=== PATIENT | male | born 1965 | race Caucasian/White ===

== ENCOUNTER 2024-07-21 20:08 | Inpatient (IN) | payer MEDICARE ==
[~2024-07-21] VITALS: Ht 177.8 cm; Wt 111.5 kg
[~2024-07-21 20:08] MED LIST: CLON-527 PO; CYAN100T12 PO; MULT-785 PO; NORCO10T PO; TERA10CA47 PO; TRAZ-89 PO; VENL25TA48 PO
[2024-07-21 20:24] LABS: BASOPHILS % (AUTO) 0.4 % (0-1); EOSINOPHILS # (AUTO) 0.1 X10'3 (0-0.9); EOSINOPHILS % (AUTO) 1.3 % (0-6); HEMATOCRIT 44.9 % (42.0-52.0); HEMOGLOBIN 14.9 g/dl (14.0-17.9); LYMPHOCYTES # (AUTO) 2.8 X10'3 (1.1-4.8); LYMPHOCYTES % (AUTO) 34.6 % (21-51); MEAN CORPUSCULAR HGB CONC 33.2 g/dL (33.0-36.5); MEAN CORPUSCULAR VOLUME 87.4 FL (78-98); MEAN PLATELET VOLUME 8.8 FL (7.4-10.4); MONOCYTES # (AUTO) 0.7 X10'3 (0-0.9); MONOCYTES % (AUTO) 8.9 % (2-12); NEUTROPHILS # (AUTO) 4.4 X10'3 (1.8-7.7); NEUTROPHILS % (AUTO) 54.8 % (42-75); PLATELET COUNT 175 X10'3 (140-440); RED BLOOD COUNT 5.14 X10'6 (4.70-6.10); RED CELL DISTRIBUTION WIDTH 14.3 % (11.5-14.5)
[2024-07-21 20:36] LABS: ALANINE AMINOTRANSFERASE 38 U/L (12-78); ALBUMIN 3.2 G/DL (3.4-5.0); ALBUMIN/GLOBULIN RATIO 0.9 (1.1-1.5); ALKALINE PHOSPHATASE 117 IU/L (46-116); ANION GAP 6 (8-16); ASPARTATE AMINO TRANSFERASE 27 U/L (10-37); BILIRUBIN,TOTAL 1.1 MG/DL (0.1-1.0); BLOOD UREA NITROGEN 15 MG/DL (7-18); CALCIUM 8.8 MG/DL (8.5-10.1); CHLORIDE 105 MMOL/L (99-107); CREATININE 1.25 MG/DL (0.60-1.10); GLUCOSE 182 MG/DL (70-104); POTASSIUM 3.6 MMOL/L (3.5-5.1); SODIUM 140 MMOL/L (135-145); TOTAL CARBON DIOXIDE 28.8 MMOL/L (24-32); TOTAL PROTEIN 6.9 G/DL (6.4-8.2); eGFR 59 ML/MIN
[2024-07-21 20:44] LABS: PRO BRAIN NATRIURETIC PEPTIDE 974 PG/ML (0-125)
[2024-07-21] MEDS ORDERED: potassium Cl 20 mEq SR tablet PO PRN (23:30)
[2024-07-21] MEDS ORDERED: acetaminophen 325mg tablet PO PRN (23:30)
[2024-07-21] MEDS ORDERED: ondansetron 4mg rapidly disintigrating tab PO PRN (23:30)
[2024-07-21] MEDS ORDERED: diphenhydrAMINE 50 mg/ml inj IV PRN (23:30)
[2024-07-21] MEDS ORDERED: magnesium sulf-water 2g/50mL 50 ML IV PRN (23:30)
[2024-07-21] MEDS ORDERED: ipratropium/albuterol 3ml nebule NEB PRN (23:30)
[2024-07-21] MEDS ORDERED: potassium Cl 40MEQ/1/2NS 520ml 520 ML IV PRN (23:30)
[2024-07-21] MEDS ORDERED: HYDROcodone/acetaminophen 5mg/325mg tablet PO PRN (23:30)
[2024-07-21] MEDS ORDERED: morphine 2 MG/ML inj. syringe IV PRN (23:30)
[2024-07-21] MEDS ORDERED: ondansetron/PF 4mg/2ml inj IV PRN (23:30)
[2024-07-21] MEDS ORDERED: magnesium hydroxide 30ml (MOM) UD suspension PO PRN (23:30)
[2024-07-21] MEDS ORDERED: mag hydrox/Alum hydrox/simeth 30ml oral suspension PO PRN (23:30)
[2024-07-21] MEDS ORDERED: bisacodyl 10mg suppository rectal RC PRN (23:30)
[2024-07-21] MEDS ORDERED: magnesium sulf-water 4G/100mL 100 ML IV PRN (23:30)
[2024-07-21] MEDS ORDERED: metoclopramide 5 mg/ml inj IV PRN (23:30)
[2024-07-21] MEDS ORDERED: albuterol 2.5 MG/3 ML nebule NEB PRN (23:30)
[2024-07-21] MEDS ORDERED: HYDROmorphone inj. 0.5 MG/0.5 ML DISP.SYRIN IV PRN (23:30)
[2024-07-21 23:53] LABS: APTT 26 SECONDS (22-32); INR 1.3 INR; PROTHROMBIN TIME 12.9 SECONDS (9.0-12.0)
[2024-07-22] VITALS (8 sets, daily range): BP systolic 101–168; BP diastolic 65–89; PULSE 57–99; RESP 15–24; TEMP 96.6–98; O2SAT 93–98
[2024-07-22] MEDS: apixaban 5mg tablet PO SCH (00:01)
[2024-07-22] MEDS: furosemide 10 MG/1 ML 10ml inj IV ONE (00:01)
[2024-07-22 02:20] LABS: BILIRUBIN,URINE NEGATIVE (Neg); CLARITY,URINE CLEAR (Clear); COLOR,URINE YELLOW (Yellow); GLUCOSE, URINE NEGATIVE (Neg); KETONES,URINE NEGATIVE (Neg); LEUKOCYTE ESTERASE ,URINE NEGATIVE (Neg); NITRITES, URINE NEGATIVE (Neg); OCCULT BLOOD,URINE SMALL (Neg); PH,URINE 5.5 (4.8-8.0); PROTEIN,URINE NEGATIVE (Neg); UROBILINOGEN,URINE 0.2 E.U/dL (0.2-1.0)
[2024-07-22 02:26] LABS: UA COLLECTION TYPE CLN CATCH MIDSTREAM
[2024-07-22 02:27] LABS: BACTERIA,URINE FEW /HPF (Neg); SQUAMOUS EPITHELIAL CELL,UR FEW /LPF (FEW); WBC,URINE 0-4 /HPF (0-4)
[2024-07-22 06:49] LABS: BASOPHILS % (AUTO) 0.5 % (0-1); EOSINOPHILS # (AUTO) 0.1 X10'3 (0-0.9); EOSINOPHILS % (AUTO) 1.7 % (0-6); HEMATOCRIT 44.3 % (42.0-52.0); HEMOGLOBIN 14.9 g/dl (14.0-17.9); LYMPHOCYTES # (AUTO) 2.5 X10'3 (1.1-4.8); LYMPHOCYTES % (AUTO) 34.4 % (21-51); MEAN CORPUSCULAR HEMOGLOBIN 29.1 PG (27.0-31.0); MEAN CORPUSCULAR HGB CONC 33.6 g/dL (33.0-36.5); MEAN CORPUSCULAR VOLUME 86.7 FL (78-98); MEAN PLATELET VOLUME 9.4 FL (7.4-10.4); MONOCYTES # (AUTO) 0.6 X10'3 (0-0.9); MONOCYTES % (AUTO) 8.7 % (2-12); NEUTROPHILS % (AUTO) 54.7 % (42-75); PLATELET COUNT 174 X10'3 (140-440); RED BLOOD COUNT 5.11 X10'6 (4.70-6.10); RED CELL DISTRIBUTION WIDTH 14.5 % (11.5-14.5); WHITE BLOOD COUNT 7.3 X10'3 (4.5-11.0)
[2024-07-22 07:14] LABS: ALANINE AMINOTRANSFERASE 31 U/L (12-78); ALBUMIN 3.2 G/DL (3.4-5.0); ALBUMIN/GLOBULIN RATIO 0.9 (1.1-1.5); ALKALINE PHOSPHATASE 110 IU/L (46-116); ANION GAP 13 (8-16); ASPARTATE AMINO TRANSFERASE 26 U/L (10-37); BILIRUBIN,TOTAL 1.3 MG/DL (0.1-1.0); BLOOD UREA NITROGEN 15 MG/DL (7-18); BUN/CREATININE RATIO 13.9 (10.0-20.0); CALCIUM 9.1 MG/DL (8.5-10.1); CHLORIDE 105 MMOL/L (99-107); CHOL/HDL RATIO 3.7 (0.00-4.99); CHOLESTEROL 133 MG/DL (0-200); CREATININE 1.08 MG/DL (0.60-1.10); GLUCOSE 159 MG/DL (70-104); HDL CHOLESTEROL 36 MG/DL (35-60); LDL CHOLESTEROL 86 MG/DL (50-100); MAGNESIUM 1.3 MG/DL (1.5-2.4); POTASSIUM 3.3 MMOL/L (3.5-5.1); SODIUM 142 MMOL/L (135-145); TOTAL CARBON DIOXIDE 24.4 MMOL/L (24-32); TOTAL PROTEIN 6.7 G/DL (6.4-8.2); TRIGLYCERIDES 99 MG/DL (20-135); eGFR 70 ML/MIN
[2024-07-22] MEDS ORDERED: heparin, porcine 5000 units/ml vial SQ SCH (08:00)
[2024-07-22] MEDS: K and/or MAG REPLACEMENT MC SCH (08:00)
[2024-07-22 09:33] LABS: D-DIMER 1.13 MG/L FEU (0-0.50)
[2024-07-22] MEDS: magnesium Cl slow-release 64mg tablet PO PRN (09:42)
[2024-07-22] MEDS: furosemide 40mg/4ml inj IV SCH (09:42)
[2024-07-22] MEDS: potassium Cl 20 mEq SR tablet PO PRN (09:43)
[2024-07-22] MEDS: docusate sod 100mg capsule PO SCH (09:45)
[2024-07-22] MEDS: ceFAZolin/D5W- 1GM premix 50 ML IV SCH (10:31)
[2024-07-22] MEDS ORDERED: glucagon, human recombinant 1mg kit SUBCUT PRN (16:45)
[2024-07-22] MEDS ORDERED: DEXTROSE 15 GM of carb/4 tabs (each vial/BOTTLE has 4 tablets) PO PRN ×2 (16:45)
[2024-07-22] MEDS ORDERED: dextrose 50%-water 50ml dispensing syringe IV PRN ×2 (16:45)
[2024-07-22] MEDS: INSULIN LISPRO 100 UNIT/ML INSULN.PEN MULTI-DOSE SQ SCH ×2 (17:00→18:00)
[2024-07-22] MEDS: insulin glargine (Lantus) pen - multi-dose SQ SCH (21:03)
[2024-07-23] VITALS (10 sets, daily range): BP systolic 100–156; BP diastolic 55–93; PULSE 68–112; RESP 16–20; TEMP 97.1–98.1; O2SAT 88–97
[2024-07-23 05:42] LABS: BASOPHILS # (AUTO) 0.1 X10'3 (0-0.2); BASOPHILS % (AUTO) 1.2 % (0-1); EOSINOPHILS # (AUTO) 0.1 X10'3 (0-0.9); MEAN CORPUSCULAR HEMOGLOBIN 29.2 PG (27.0-31.0); NEUTROPHILS # (AUTO) 3.4 X10'3 (1.8-7.7); RED CELL DISTRIBUTION WIDTH 14.6 % (11.5-14.5); WHITE BLOOD COUNT 6.9 X10'3 (4.5-11.0)
[2024-07-23 05:44] LABS: HEMATOCRIT 44.4 % (42.0-52.0); HEMOGLOBIN 14.8 g/dl (14.0-17.9); LYMPHOCYTES # (AUTO) 2.7 X10'3 (1.1-4.8); LYMPHOCYTES % (AUTO) 39.2 % (21-51); MEAN CORPUSCULAR HGB CONC 33.4 g/dL (33.0-36.5); MEAN CORPUSCULAR VOLUME 87.3 FL (78-98); MEAN PLATELET VOLUME 9.5 FL (7.4-10.4); MONOCYTES # (AUTO) 0.5 X10'3 (0-0.9); MONOCYTES % (AUTO) 7.8 % (2-12); NEUTROPHILS % (AUTO) 49.8 % (42-75); PLATELET COUNT 149 X10'3 (140-440); RED BLOOD COUNT 5.08 X10'6 (4.70-6.10)
[2024-07-23 05:49] LABS: ALANINE AMINOTRANSFERASE 28 U/L (12-78); ALBUMIN 3.1 G/DL (3.4-5.0); ALBUMIN/GLOBULIN RATIO 0.8 (1.1-1.5); ALKALINE PHOSPHATASE 106 IU/L (46-116); ANION GAP 7 (8-16); ASPARTATE AMINO TRANSFERASE 29 U/L (10-37); BILIRUBIN,TOTAL 1.1 MG/DL (0.1-1.0); BLOOD UREA NITROGEN 19 MG/DL (7-18); BUN/CREATININE RATIO 14.2 (10.0-20.0); CALCIUM 8.8 MG/DL (8.5-10.1); CHLORIDE 106 MMOL/L (99-107); CREATININE 1.34 MG/DL (0.60-1.10); GLUCOSE 152 MG/DL (70-104); MAGNESIUM 1.5 MG/DL (1.5-2.4); SODIUM 143 MMOL/L (135-145); TOTAL CARBON DIOXIDE 30.1 MMOL/L (24-32); TOTAL PROTEIN 6.8 G/DL (6.4-8.2); eCRCL 60 ML/MIN; eGFR 54 ML/MIN
[2024-07-23 05:57] LABS: POTASSIUM 4.4 MMOL/L (3.5-5.1)
[2024-07-23] MEDS: nicotine 7mg patch - 24hr TD SCH (12:15)
[2024-07-23 13:03] LABS: BILIRUBIN,URINE NEGATIVE (Neg); CLARITY,URINE CLEAR (Clear); COLOR,URINE YELLOW (Yellow); GLUCOSE, URINE NEGATIVE (Neg); KETONES,URINE NEGATIVE (Neg); LEUKOCYTE ESTERASE ,URINE NEGATIVE (Neg); NITRITES, URINE NEGATIVE (Neg); OCCULT BLOOD,URINE MODERATE (Neg); PROTEIN,URINE NEGATIVE (Neg); UROBILINOGEN,URINE 0.2 E.U/dL (0.2-1.0)
[2024-07-23 13:17] LABS: BACTERIA,URINE NONE SEEN /HPF (Neg); MUCUS STRANDS NONE SEEN /LPF (Neg); SQUAMOUS EPITHELIAL CELL,UR FEW /LPF (FEW); UA COLLECTION TYPE URINAL; WBC,URINE 0-4 /HPF (0-4)
[2024-07-23] MEDS: magnesium sulf-water 2g/50mL 50 ML IV ONE (14:36)
[2024-07-23] MEDS: flecainide 50mg tablet PO SCH (20:06)
[2024-07-24 02:00] VITALS: BP 130/73; PULSE 65; RESP 11; TEMP 97.2; O2SAT 91
[2024-07-24 06:00] VITALS: BP 132/96; PULSE 54; RESP 21; TEMP 97.4; O2SAT 96
[2024-07-24 06:18] LABS: BASOPHILS % (AUTO) 0.5 % (0-1); EOSINOPHILS # (AUTO) 0.1 X10'3 (0-0.9); EOSINOPHILS % (AUTO) 1.5 % (0-6); HEMOGLOBIN 15.4 g/dl (14.0-17.9); LYMPHOCYTES # (AUTO) 2.3 X10'3 (1.1-4.8); LYMPHOCYTES % (AUTO) 26.8 % (21-51); MEAN CORPUSCULAR HEMOGLOBIN 29.3 PG (27.0-31.0); MEAN CORPUSCULAR HGB CONC 33.5 g/dL (33.0-36.5); MEAN CORPUSCULAR VOLUME 87.7 FL (78-98); MEAN PLATELET VOLUME 9.7 FL (7.4-10.4); MONOCYTES # (AUTO) 0.6 X10'3 (0-0.9); MONOCYTES % (AUTO) 7.4 % (2-12); NEUTROPHILS # (AUTO) 5.4 X10'3 (1.8-7.7); NEUTROPHILS % (AUTO) 63.8 % (42-75); PLATELET COUNT 185 X10'3 (140-440); RED BLOOD COUNT 5.25 X10'6 (4.70-6.10); RED CELL DISTRIBUTION WIDTH 14.8 % (11.5-14.5); WHITE BLOOD COUNT 8.5 X10'3 (4.5-11.0)
[2024-07-24 06:26] LABS: ALANINE AMINOTRANSFERASE 28 U/L (12-78); ALBUMIN 3.3 G/DL (3.4-5.0); ALBUMIN/GLOBULIN RATIO 0.8 (1.1-1.5); ALKALINE PHOSPHATASE 111 IU/L (46-116); ANION GAP 8 (8-16); ASPARTATE AMINO TRANSFERASE 22 U/L (10-37); BILIRUBIN,TOTAL 1.2 MG/DL (0.1-1.0); BLOOD UREA NITROGEN 16 MG/DL (7-18); BUN/CREATININE RATIO 12.4 (10.0-20.0); CALCIUM 8.8 MG/DL (8.5-10.1); CHLORIDE 105 MMOL/L (99-107); CREATININE 1.29 MG/DL (0.60-1.10); GLUCOSE 167 MG/DL (70-104); MAGNESIUM 1.8 MG/DL (1.5-2.4); POTASSIUM 3.6 MMOL/L (3.5-5.1); SODIUM 142 MMOL/L (135-145); THYROID STIMULATING HORMONE 1.33 ulU/ml (0.34-4.50); TOTAL PROTEIN 7.2 G/DL (6.4-8.2); eCRCL 62 ML/MIN; eGFR 57 ML/MIN
[2024-07-24] MEDS: metoprolol succinate 25mg (24-HOUR) SR. Tablet PO SCH (07:54)
[2024-07-24] MEDS: EMPAGLIFLOZIN 10 MG TABLET PO SCH (07:54)
[2024-07-24] MEDS: lisinopril 5mg tablet PO SCH (07:55)
[2024-07-24 08:32] VITALS: PULSE 83; RESP 18; O2SAT 94
[2024-07-24 11:00] VITALS: BP 128/89; PULSE 51; RESP 13; TEMP 97.4; O2SAT 91
[2024-07-24] MEDS: clonazePAM 0.5mg tablet PO ONE (11:26)
[2024-07-24] MEDS ORDERED: INSU100I8 SQ (14:18)
[2024-07-24] MEDS ORDERED: EMPA10TA PO (14:18)
[2024-07-24] MEDS ORDERED: LANTUS SQ (14:18)
[2024-07-24] MEDS ORDERED: LISI5TAB22 PO (14:18)
[2024-07-24] MEDS ORDERED: METO-395 PO (14:18)
[2024-07-24] MEDS ORDERED: TAM50T PO (14:18)
[2024-07-24] MEDS ORDERED: APIX5TAB3 PO (14:18)
[2024-07-24] MEDS ORDERED: docusate sod 100mg capsule PO SCH (20:00)
[2024-07-25] MEDS ORDERED: furosemide 20 MG/2 ML vial IV SCH (08:00)
== END 2024-07-24 14:56 | disposition home or self-care (01) | DRG 291 ==
LOC: ER 20:09 → ED HOLD 23:35 → PCU 3S 07-22 02:05
PROVIDERS: ADMIT Internal Medicine Critical Care Medicine; ATTEND Internal Medicine
DX: I11.0 Hypertensive heart disease with heart failure (principal); I50.33 Acute on chronic diastolic (congestive) heart failure; L03.116 Cellulitis of left lower limb; N17.9 Acute kidney failure, unspecified; I48.92 Unspecified atrial flutter; L03.115 Cellulitis of right lower limb; E11.9 Type 2 diabetes mellitus without complications; Z85.46 Personal history of malignant neoplasm of prostate; Z79.899 Other long term (current) drug therapy; Z92.3 Personal history of irradiation; Z87.891 Personal history of nicotine dependence
CPT/HCPCS: 36415; 71045; 71250; 74176; 80053; 80061; 81001; 82948; 83036; 83605; 83735; 83880; 84145; 84443; 84484; 85025; 85379; 85610; 85730; 87040; 87081; 93005; 93306; 94760; 97116; 97161; 99285; A4615; A6449; G0378; J0690; J1815; J1938; J1940; J7040

== ENCOUNTER 2024-08-24 07:02 | Day surgery (SDC) | payer MEDICARE ==
[2024-08-23 15:38] LABS: BASOPHILS % (AUTO) 0.6 % (0-1); EOSINOPHILS # (AUTO) 0.1 X10'3 (0-0.9); EOSINOPHILS % (AUTO) 0.8 % (0-6); HEMATOCRIT 46.4 % (42.0-52.0); HEMOGLOBIN 15.2 g/dl (14.0-17.9); LYMPHOCYTES # (AUTO) 1.6 X10'3 (1.1-4.8); LYMPHOCYTES % (AUTO) 23.2 % (21-51); MEAN CORPUSCULAR HEMOGLOBIN 28.1 PG (27.0-31.0); MEAN CORPUSCULAR HGB CONC 32.8 g/dL (33.0-36.5); MEAN CORPUSCULAR VOLUME 85.6 FL (78-98); MEAN PLATELET VOLUME 8.4 FL (7.4-10.4); MONOCYTES # (AUTO) 0.7 X10'3 (0-0.9); NEUTROPHILS # (AUTO) 4.6 X10'3 (1.8-7.7); NEUTROPHILS % (AUTO) 65.4 % (42-75); PLATELET COUNT 192 X10'3 (140-440); RED BLOOD COUNT 5.42 X10'6 (4.70-6.10); RED CELL DISTRIBUTION WIDTH 15.4 % (11.5-14.5); WHITE BLOOD COUNT 7.1 X10'3 (4.5-11.0)
[2024-08-23 15:48] LABS: ALBUMIN 3.5 G/DL (3.4-5.0); ANION GAP 10 (8-16); BLOOD UREA NITROGEN 17 MG/DL (7-18); BUN/CREATININE RATIO 12.4 (10.0-20.0); CALCIUM 9.2 MG/DL (8.5-10.1); CHLORIDE 105 MMOL/L (99-107); CREATININE 1.37 MG/DL (0.60-1.10); GLUCOSE 192 MG/DL (70-104); POTASSIUM 3.7 MMOL/L (3.5-5.1); SODIUM 141 MMOL/L (135-145); TOTAL CARBON DIOXIDE 26.5 MMOL/L (24-32); eGFR 53 ML/MIN
[2024-08-23 15:49] LABS: INR 1.2 INR; PROTHROMBIN TIME 12.2 SECONDS (9.0-12.0)
[~2024-08-24] VITALS: Ht 177.8 cm; Wt 105.7 kg
[~2024-08-24 07:02] MED LIST changes: +APIX5TAB3 PO; -CLON-527 PO; +EMPA10TA PO; +INSU100I8 SQ; +LANTUS SQ; +LISI5TAB22 PO; +METO-395 PO; -NORCO10T PO; +TAM50T PO; -TERA10CA47 PO; -TRAZ-89 PO; -VENL25TA48 PO
[2024-08-24] MEDS ORDERED: normal saline 1000ml 1,000 ML IV SCH (07:20)
[2024-08-24] MEDS ORDERED: amiodarone 150mg/dext, iso-os 100 ML IV ONE (07:20)
[2024-08-24] MEDS ORDERED: diphenhydrAMINE 25mg capsule PO ONE (07:20)
[2024-08-24] MEDS ORDERED: atropine 0.1mg/ml 10ml syringe IV ONE (07:20)
[2024-08-24] MEDS ORDERED: morphine 10mg/ml inj. IV ONE (07:20)
[2024-08-24] MEDS ORDERED: MIDAZolam 1mg/ml 10ml vial IV ONE (07:20)
[2024-08-24] MEDS ORDERED: LORazepam 0.5 MG tablet PO ONE (07:20)
--- NOTE | 2024-08-24 07:27 | ELECTROCARDIOGRAPH REPORT ---
[facility] Test Date: 2024-08-24 Test Time: 07:24:13 Pat Name: JOHNIE JARQUIN Department: [facility] Patient ID: [facility]-[id number] Room: Gender: M Jammer Hooker: ANSON : 1965 Requested By: ELY MEYERS Order Number: [id number] Reading MD: Dr. Maggie Santana Measurements Intervals [place] Rate: 66 P: 0 RI: 0 QRS: 177 QRSD: 147 T: 60 QT: 521 QTc: 546 Interpretive Statements Atrial flutter with predominant 4:1 AV block RBBB and LPFB Electronically Signed On 08-25-2024 8:50:[address] Maggie Santana Please click the below link to view image of tracing.
[2024-08-24 07:30] VITALS: BP 122/63; PULSE 68; RESP 17; TEMP 98; O2SAT 94
[2024-08-24] MEDS ORDERED: EMPA10TA PO (07:33)
[2024-08-24] MEDS ORDERED: METO-384 PO (07:33)
[2024-08-24] MEDS ORDERED: SULF1TAB45 PO (07:33)
[2024-08-24] MEDS ORDERED: APIX5TAB3 PO (07:33)
[2024-08-24] MEDS ORDERED: LISI-642 PO (07:33)
[2024-08-24] MEDS ORDERED: FURO20TA4 PO (07:33)
[2024-08-24] MEDS ORDERED: FLEC100T35 PO (07:33)
[2024-08-24 07:45] VITALS: RESP 15; O2SAT 93
[2024-08-24] MEDS ORDERED: amiodarone 50MG/ML inj IV ONE (08:33)
[2024-08-24] MEDS ORDERED: fentaNYL/PF 50MCG/1 ML 2ML syringe ONE (08:33)
[2024-08-24] MEDS ORDERED: midazolam 1 mg/ML 2ml injection ONE ×2 (08:34→08:58)
[2024-08-24] MEDS ORDERED: atropine 0.1mg/ml 10ml syringe ONE (08:34)
--- NOTE | 2024-08-24 09:28 | ELECTROCARDIOGRAPH REPORT ---
[facility] Test Date: 2024-08-24 Test Time: 09:25:17 Pat Name: JOHNIE JARQUIN Department: [facility] Patient ID: [facility]-[id number] Room: Gender: M Tube Splicer: ANSON : 1965 Requested By: ELY MEYERS Order Number: [id number] Reading MD: Dr. Maggie Santana Measurements Intervals [place] Rate: 83 P: 50 CT: 210 QRS: 139 QRSD: 147 T: 8 QT: 433 QTc: 509 Interpretive Statements Sinus rhythm RBBB and LPFB Electronically Signed On 08-25-2024 8:50:[address] Maggie Santana Please click the below link to view image of tracing.
[2024-08-24 09:30] VITALS: BP 152/86; PULSE 82; RESP 15; O2SAT 98
[2024-08-24 09:45] VITALS: BP 155/82; PULSE 84; RESP 15; O2SAT 92
[2024-08-24 10:00] VITALS: BP 149/82; PULSE 82; RESP 13; O2SAT 93
[2024-08-24 10:15] VITALS: BP 141/78; PULSE 81; RESP 15; O2SAT 94
--- NOTE | 2024-08-25 04:31 | CARDIOLOGY REPORT ---
DATE OF SERVICE: 08/24/2024 DICTATING PHYSICIAN: GREG Chappell MD ELECTRICAL CARDIOVERSION REPORT PRIMARY PHYSICIAN: [facility]. SPIKE DRIVER: GREG Chappell MD INDICATIONS: The patient is a 59-year-old male with history of type 2 diabetes, GERD, prostate cancer, history of CHF, atrial fib/flutter. The patient was hospitalized with [facility] back on 07/22/2024 to 07/24/2024 with atrial flutter. Echocardiogram showed EF of 50%, moderate concentric LVH with RVST of 58 mmHg. The patient's CHF, with elevated proBNP and was treated with Lasix. The patient was started in the outpatient setting on flecainide and metoprolol and was already on Eliquis . after risks benefits s, alternative options, the patient prefers to proceed with the electrical cardioversion. Risks, benefits, alternative options discussed. Informed consent obtained. DESCRIPTION OF PROCEDURE: Anterior and posterior patches used. Using biphasic electrical energy 150 joules, converted to normal sinus rhythm, remained in normal sinus rhythm. IMPRESSION: A 59-year-old male with persistent atrial flutter, converted to normal sinus rhythm. RECOMMENDATIONS: Continue Eliquis, metoprolol, and flecainide. The patient has a history suspicious for obstructive sleep apnea, recommend sleep study. GREG Chappell MD TID: [id number] RECEIPT: [id number] ROB/LUIS DANIEL/ISSAC DÍAZ
== END 2024-08-24 10:45 | disposition home or self-care (01) ==
LOC: SSTAY O 07:02
PROVIDERS: ATTEND Internal Medicine Cardiovascular Disease
DX: I48.19 Other persistent atrial fibrillation (principal); I44.30 Unspecified atrioventricular block; I45.19 Other right bundle-branch block; K21.9 Gastro-esophageal reflux disease without esophagitis; I50.9 Heart failure, unspecified; E66.3 Overweight; Z83.3 Family history of diabetes mellitus; Z82.49 Family history of ischemic heart disease and other diseases of the circulatory system; I50.32 Chronic diastolic (congestive) heart failure; I36.1 Nonrheumatic tricuspid (valve) insufficiency; I27.29 Other secondary pulmonary hypertension; G47.30 Sleep apnea, unspecified; Z79.899 Other long term (current) drug therapy; Z68.34 Body mass index [BMI] 34.0-34.9, adult
CPT/HCPCS: 36415; 80048; 82948; 85025; 85610; 92960; 93005; A4615; J2250; J3010; J7030; Z7610; 99152; 99153; J0282; J0461